=== PATIENT | male | born 1955 | race Caucasian/White ===

== ENCOUNTER 2017-12-16 09:25 | Emergency (ER) | payer BC ==
[2017-12-16] MEDS ORDERED: Nitroglycerin 0.4 MG Tab.SL SL ONE ×2 (09:37→09:48)
[2017-12-16] MEDS ORDERED: Aspirin 81 MG Tab.Chew PO ONE (09:37)
[2017-12-16 09:54] LABS: CHLORIDE,CL 104 mEq/L (98-106); SODIUM,NA 141 mEq/L (136-145)
[2017-12-16 09:59] VITALS: BP 143/72
--- NOTE | 2017-12-16 13:10 | EDM.PDOC ---
ED HPI GENERAL MEDICAL PROBLEM - General Chief Complaint: Chest Pain Stated Complaint: chest pain Time Seen by Provider: 12/16/17 09:28 Source of Information: Reports: Patient, RN Notes Reviewed History Limitations: Reports: No Limitations - History of Present Illness Onset: Today, Other (Patient reports he woke up with chest pain at approx 0500 today.) Duration: Constant, Other (improved significantly [employer]) Location: Reports: Chest, Upper Extremity, Left Quality: Reports: Pressure Severity: Mild Improves with: Reports: Rest Worsens with: Reports: Movement Associated Symptoms: Reports: No Other Symptoms Left Anterior Chest Pain Score (Numeric/FACES): 3 - Related Data Allergies Allergy/AdvReac Type Severity Reaction Status Date / Time No Known Allergies Allergy Verified 12/16/17 09:35 Home Meds: Home Meds Cyanocobalamin (Vitamin B12) [Vitamin B12] 250 mcg PO DAILY 03/09/16 [History] Ascorbic Acid [Vitamin C] 1,000 mg PO DAILY 12/16/17 [History] Calcium Carbonate/Vitamin D3 [Calcium 500 + Vit D 400] 500 mg PO DAILY 12/16/17 [History] RX: Magnesium 1,000 mg PO DAILY 12/16/17 [History] Past Medical History HEENT History: Reports: Hard of Hearing - Past Surgical History HEENT Surgical History: Reports: Oral Surgery Musculoskeletal Surgical History: Reports: Arthroscopic Knee Social & Family History - Tobacco Use Smoking Status *Q: Never Smoker Second Hand Smoke Exposure: No ED ROS GENERAL - Review of Systems Review Of Systems: See Below Constitutional: Reports: No Symptoms Respiratory: Reports: No Symptoms Cardiovascular: Reports: Chest Pain, Other (denies syncope, dizziness, weakness , edema, cyanosis, diaphoresis, other CV complaints.) : Reports: No Symptoms Musculoskeletal: Reports: No Symptoms Neurological: Reports: No Symptoms ED EXAM, GENERAL - Physical Exam Exam: See Below Exam Limited By: No Limitations General Appearance: Alert, WD/WN, No Apparent Distress Neck: Normal Inspection Respiratory/Chest: No Respiratory Distress, Lungs Clear, Normal Breath Sounds, No Accessory Muscle Use, Chest Non-Tender Cardiovascular: Normal Peripheral Pulses, Regular Rate, Rhythm, No Edema, No Gallop, No JVD, No Murmur, No Rub Peripheral Pulses: 2+: Radial (L), Radial (R) GI/Abdominal: Non-Tender Extremities: Normal Inspection, Normal Capillary Refill Neurological: Alert, Oriented, Normal Cognition, Normal Gait, Normal Reflexes, No Motor/Sensory Deficits Psychiatric: Normal Affect, Normal Mood Skin Exam: Warm, Dry, Intact, Normal Color, No Rash EKG INTERPRETATION Rhythm: NSR (No ST-T change or elevation.) [place]: Normal P-Wave: Present QRS: Normal ST-T: Normal QT: Normal Course - Vital Signs Last Recorded V/S: Last Vital Signs Temp 36.5 C 12/16/17 09:50 Pulse 62 12/16/17 09:59 Resp 20 12/16/17 09:50 BP 143/72 H 12/16/17 09:59 Pulse Ox 95 12/16/17 09:50 - Orders/Labs/Meds Orders: Active Orders 24 hr Category Date Time Status EKG Documentation Completion [RC] ROUTINE Care 12/16/17 12:30 Active Chest 2V [CR] Stat Exams 12/16/17 10:21 Taken Labs: Laboratory Tests 12/16/17 12/16/17 12/16/17 Range/Units 09:36 09:36 09:36 WBC 5.7 (5.0-10.0) 10^3/uL RBC 4.69 (4.50-6.00) 10^6/uL Hgb 15.0 (14.0-18.0) g/dL Hct 43.7 (40.0-54.0) % MCV 93.2 (82.0-94.0) fL MCH 32.0 (27.0-32.0) pg MCHC 34.3 (33.0-38.0) g/dL RDW Coeff of [place] 12.6 (11.0-15.0) % Plt Count 196 (150-400) 10^3/uL Neut % (Auto) 61.6 (35-85) % Lymph % (Auto) 23.7 (10-55) % [place] % (Auto) 12.0 (0-16) % Eos % (Auto) 2.4 (0-5) % Baso % (Auto) 0.3 (0-3) % Neut # (Auto) 3.52 (1.80-7.00) 10^3/uL Lymph # (Auto) 1.36 (1.00-4.80) 10^3/uL [place] # (Auto) 0.69 (0.00-0.80) 10^3/uL Eos # (Auto) 0.14 (0.00-0.45) 10^3/uL Baso # (Auto) 0.02 10^3/uL PT 9.2 L (9.7-12.3) SEC INR 0.88 L (0.92-1.18) APTT 25.4 (23.2-32.3) SEC Sodium 141 (136-145) mEq/L Potassium 3.7 (3.5-5.0) mEq/L Chloride 104 (98-106) mEq/L Carbon Dioxide 26 (21-32) mmol/L BUN 20 H (7-18) mg/dL Creatinine 1.2 (0.7-1.3) mg/dL Est Cr Clr Drug Dosing 67.98 mL/min Estimated GFR (MDRD) > 60 (>=60) mL/min Glucose 142 H (75-99) mg/dL Calcium 8.6 (8.4-10.1) mg/dL Magnesium 1.9 (1.8-2.4) mg/dL Creatine Kinase 154 (35-232) U/L Troponin I < 0.017 (0.00-0.06) ng/mL 12/16/17 Range/Units 12:25 WBC (5.0-10.0) 10^3/uL RBC (4.50-6.00) 10^6/uL Hgb (14.0-18.0) g/dL Hct (40.0-54.0) % MCV (82.0-94.0) fL MCH (27.0-32.0) pg MCHC (33.0-38.0) g/dL RDW Coeff of [place] (11.0-15.0) % Plt Count (150-400) 10^3/uL Neut % (Auto) (35-85) % Lymph % (Auto) (10-55) % [place] % (Auto) (0-16) % Eos % (Auto) (0-5) % Baso % (Auto) (0-3) % Neut # (Auto) (1.80-7.00) 10^3/uL Lymph # (Auto) (1.00-4.80) 10^3/uL [place] # (Auto) (0.00-0.80) 10^3/uL Eos # (Auto) (0.00-0.45) 10^3/uL Baso # (Auto) 10^3/uL PT (9.7-12.3) SEC INR (0.92-1.18) APTT (23.2-32.3) SEC Sodium (136-145) mEq/L Potassium (3.5-5.0) mEq/L Chloride (98-106) mEq/L Carbon Dioxide (21-32) mmol/L BUN (7-18) mg/dL Creatinine (0.7-1.3) mg/dL Est Cr Clr Drug Dosing mL/min Estimated GFR (MDRD) (>=60) mL/min Glucose (75-99) mg/dL Calcium (8.4-10.1) mg/dL Magnesium (1.8-2.4) mg/dL Creatine Kinase (35-232) U/L Troponin I < 0.017 (0.00-0.06) ng/mL Meds: Medications Discontinued Medications Generic Name Dose Route Start Last Admin Trade Name Freq PRN Reason Stop Dose Admin Aspirin 324 mg 12/16/17 09:37 12/16/17 09:28 Aspirin PO 12/16/17 09:38 324 mg ONETIME ONE Administration Nitroglycerin 0.4 mg 12/16/17 09:37 12/16/17 09:28 Nitrostat SL 12/16/17 09:38 0.4 mg ONETIME ONE Administration Nitroglycerin 0.4 mg 12/16/17 09:48 12/16/17 09:48 Nitrostat SL 12/16/17 09:49 0.4 mg ONETIME ONE Administration Departure - Departure Time of Disposition: 13:10 Disposition: Home, Self-Care 01 Clinical Impression: Chest pain Instructions: Nonspecific Chest Pain Referrals: Aba Green MD [Primary Care Provider] - - My Orders Last 24 Hours: My Active Orders 12/16/17 10:21 Chest 2V [CR] Stat 12/16/17 12:30 EKG Documentation Completion [RC] ROUTINE - Assessment/Plan Last 24 Hours: My Active Orders 12/16/17 10:21 Chest 2V [CR] Stat 12/16/17 12:30 EKG Documentation Completion [RC] ROUTINE Assessment:: Patient has normal EKG, negative troponin x2, normal CXR, and a normal physical exam. The differential is wide and includes but is not limited to ACS, NE, aortic dissection, pneumonia, and PE. Given the patient's normal labs and exam I do not suspect any acute pathology at this time. His HEART score is 2 which is very low risk for MACE following discharge. I will have staffing rn set him up for a cardiac stress test here in town before the end of the week. The patient is advised to rest, hydrate, follow up with PCP for stress test (call Monday), and to immediately return to the ED for any new or worse symptoms. The patient reports understanding and agreement with plan. He is DC home stable in care of a friend.
== END 2017-12-16 13:25 | disposition home or self-care (01) ==
LOC: CC.ED 09:25
DX: R07.9 Chest pain, unspecified (principal); Z79.899 Other long term (current) drug therapy
CPT/HCPCS: 36415; 71046; 80048; 82550; 83735; 84484; 85025; 85610; 85730; 93005; 99285; A9270-GY